=== PATIENT | female | born 1945 | race Caucasian/White ===

== ENCOUNTER 2021-07-21 07:58 | Day surgery (SDC) | payer MEDICARE ==
[~2021-07-21] VITALS: Ht 150 cm; Wt 84.0 kg
[~2021-07-21 07:58] MED LIST: AFREZZA1 EAC4 SC; ALLOPURINOL100 MG PO; AMITIZA8 MCG PO; ASPIRIN325 MG PO; BACTRIM DS TAB1 EACH PO; CELEXA20 MG PO; CELEXA40 MG PO; CILOSTAZOL100 MG PO; CIPRO500 MG PO; COZAAR100 MG PO; DRISDOL50000 UNIT PO; ELAVIL50 MG PO; FEOSOL325 MG PO; FLEXERIL10 MG PO; FUROSEMIDE 40MG40 MG PO; FUROSEMIDE40 MG PO; HCTZ25 MG PO; HYDROCHLOROTHIAZIDE PO; HYDROCODONE-IBUPROFE; INSULIN LEVEMIR SC; JANUVIA 100MG100 MG PO; LASIX40 MG PO; LEVAQUIN750 MG PO; LEVEMIR100 UNIT/1 SC; LEVO-T25 MCG PO; LIPITOR20 MG PO; LOSARTAN-HCTZ1 EAC1 PO; MIRAPEX0.25 MG PO; MOBIC7.5 MG PO; MOTRIN600 MG PO; NEUPRO1 EAC1 TD; NEUPRO1 EAC1 TOP; NEURONTIN300 MG PO; NORVASC5 MG PO; OXY-IR 5MG5 MG PO; PERCOCET 5-3251 EACH PO; POTASSIUM CHLO20 ME2 PO; PRINIVIL10 MG PO; PROTONIX 40MG T40 MG PO; amitriptyline PO
[2021-07-21] MEDS ORDERED: FEOSOL325 MG PO (15:27)
[2021-07-21] MEDS ORDERED: CHILDREN'S ASPI81 MG PO (15:27)
[2021-07-22 05:40] LABS: BASOPHIL 0.1 % (0-2); EOSINOPHIL 1.1 % (0-7); HCT 33.7 % (37.0-47.0); HGB 10.9 g/dl (12.5-16.0); LYMPHOCYTE 17.5 % (15-48); MCH 32.6 pg (25.0-31.0); MCHC 32.3 g/dL (32.0-36.0); MCV 100.9 fL (78.0-100.0); MONOCYTE 7.9 % (0-12); MPV 9.6 fL (6.0-9.5); NRBC 0; PLT 121 K/uL (150-400); RBC 3.34 M/uL (4.20-5.40); RDW 13.4 % (11.5-14.0)
[2021-07-22 06:20] LABS: BUN/CREAT RATIO (CALC) 29.2 RATIO; CREATININE 0.89 mg/dL (0.51-0.95); POTASSIUM 4.4 mmol/L (3.5-5.1)
--- NOTE | 2021-07-22 10:21 | NUR ---
PT HAD A LTKR ON 07/21/21. PT. WILL D/CHOME WITH SPOUSE. PT. HAS A RW. PT REQUESTED CARETENDERS. PT.SIGNED CHOICE FORM AND COPY GIVEN.
== END 2021-07-22 16:00 | disposition home or self-care (01) ==
LOC: FAS 07:58 → FOFB 12:21 → FAS 07-22 16:00
PROVIDERS: Orthopaedic Surgery
DX: M17.12 Unilateral primary osteoarthritis, left knee (principal); M79.4 Hypertrophy of (infrapatellar) fat pad; I10 Essential (primary) hypertension; E11.9 Type 2 diabetes mellitus without complications; I25.10 Atherosclerotic heart disease of native coronary artery without angina pectoris
CPT/HCPCS: 36415; 73560; 80048; 85025; 86850; 86900; 86901; 94010; 97162; 97166; 97530-GP; 97535; C1713; C1776; J0171; J0697; J1100; J1170; J1815; J1885; J2250; J2270; J2405; J2704; J2795; J3010; J3490; J7120